=== PATIENT | female | born 1985 | race Two or more races ===

== ENCOUNTER 2017-11-27 03:54 | Emergency (ER) | payer OTHER ==
[~2017-11-27] VITALS: Ht 152.4 cm; Wt 56.0 kg
[2017-11-27] MEDS ORDERED: ondansetron 4mg rapidly disintigrating tab PO ONE (04:35)
[2017-11-27 05:39] VITALS: BP 118/69
== END 2017-11-27 05:40 | disposition home or self-care (01) ==
LOC: ER 03:55
DX: J70.5 Respiratory conditions due to smoke inhalation (principal); F41.9 Anxiety disorder, unspecified
CPT/HCPCS: 71045; 99283